=== PATIENT | male | born 1955 | race Caucasian/White ===

== ENCOUNTER 2023-01-21 03:27 | Emergency (ER) | payer MEDICARE, MEDICAID ==
[~2023-01-21] VITALS: Ht 172.7 cm; Wt 100.0 kg
[2023-01-21 03:28] VITALS: BP 138/98; PULSE 76; RESP 18; TEMP 99.1; O2SAT 100
[2023-01-21] MEDS ORDERED: MORPHINE SULFATE 4 MG/ML CPJ (NOT FOR IM USE) IV ONE (04:30)
[2023-01-21 04:31] LABS: BASOPHILS % 0.6 % (0.0-2.0); EOSINOPHILS % 1.8 % (0.0-5.0); HEMATOCRIT. 44.1 % (42.0-52.0); HEMOGLOBIN. 15.3 g/dL (14.0-18.0); LYMPHOCYTES % 26.9 % (20.0-50.0); MEAN CORPUSCULAR HEMOGLOBIN 31.1 pg (28.0-32.0); MEAN CORPUSCULAR VOLUME 89.9 fL (80.0-94.0); MONOCYTES % 9.9 % (2.0-8.0); NEUTROPHILS % 60.8 % (40.0-76.0); PLATELET 306 x1000/uL (130-400); RED CELL DISTRIBUTION WIDTH 15.5 % (11.6-14.6)
[2023-01-21 04:41] LABS: CHLORIDE 106 mEq/L (98-107)
[2023-01-21] MEDS ORDERED: IOHEXOL-350 100 ML BOTTLE ONE (06:29)
== END 2023-01-21 06:30 | disposition left against medical advice (07) ==
LOC: ER 03:52 → EDBEDREQ 05:04 → EDBEDREQTM 05:04 → ER 06:30 → ENRESERV 06:42 → CANRESERV 06:42 → CANBEDREQ 21:31
DX: R07.89 Other chest pain (principal); I10 Essential (primary) hypertension; Z68.33 Body mass index [BMI] 33.0-33.9, adult
CPT/HCPCS: 99285; 96374; 71275; 71045; 80053; 83880; 85025; 84484; 36415; Q9967; J2270

== ENCOUNTER 2023-01-31 15:14 | Emergency (ER) | payer MEDICARE, MEDICAID ==
[~2023-01-31] VITALS: Ht 185.4 cm; Wt 90.0 kg
[2023-01-31 15:16] VITALS: TEMP 98.3; O2SAT 100
[2023-01-31 16:13] LABS: BASOPHILS % 0.4 % (0.0-2.0); EOSINOPHILS % 1.9 % (0.0-5.0); HEMATOCRIT. 43.5 % (42.0-52.0); MEAN CORPUSCULAR HEMOGLOBIN 30.9 pg (28.0-32.0); MEAN CORPUSCULAR VOLUME 89.8 fL (80.0-94.0); MEAN PLATELET VOLUME 7.3 fl (7.4-10.4); MONOCYTES % 7.8 % (2.0-8.0); NEUTROPHILS % 64.9 % (40.0-76.0); PLATELET 297 x1000/uL (130-400); RED BLOOD CELL COUNT 4.84 mill/uL (4.7-6.1); RED CELL DISTRIBUTION WIDTH 14.6 % (11.6-14.6)
[2023-01-31 16:18] LABS: CHLORIDE 107 mEq/L (98-107)
[2023-01-31 18:00] VITALS: BP 144/99; PULSE 96; RESP 18
== END 2023-01-31 19:00 | disposition home or self-care (01) ==
LOC: ER 15:14
DX: R07.89 Other chest pain (principal); I10 Essential (primary) hypertension
CPT/HCPCS: 36415; 71045; 80053; 80320; 83880; 84484; 85025; 93005; 99285; G0480

== ENCOUNTER 2023-03-31 00:14 | Emergency (ER) | payer MEDICARE, MEDICAID ==
[~2023-03-31] VITALS: Ht 193 cm; Wt 90.0 kg
[2023-03-31 00:16] VITALS: BP 144/82; PULSE 84; RESP 16; TEMP 98.4; O2SAT 98
[2023-03-31 01:32] LABS: CLARITY URINE CLEAR (CLEAR); COLOR URINE YELLOW (YELLOW); GLUCOSE URINE NEGATIVE (NEGATIVE); KETONES URINE NEGATIVE (NEGATIVE); LEUKOCYTE ESTERASE URINE 3+ (NEGATIVE); NITRITE URINE NEGATIVE (NEGATIVE); OCCULT BLOOD URINE 2+ (NEGATIVE); PROTEIN URINE TRACE (NEGATIVE); SPECIFIC GRAVITY URINE 1.011 (1.005-1.030); UROBILINOGEN URINE 0.2 E.U./dL (0.2-1.0)
[2023-03-31] MEDS ORDERED: CEPH500T MT (01:34)
[2023-03-31] MEDS ORDERED: TAMS-11 MT (01:34)
[2023-03-31 01:36] LABS: SQUAMOUS EPITHELIAL CELL URINE NONE SEEN /lpf (RARE/1+)
[2023-03-31 02:26] LABS: WBC URINE 15-25 /hpf (0-2)
[2023-03-31 02:29] LABS: BACTERIA URINE TRACE; YEAST URINE 1+
== END 2023-03-31 02:33 | disposition home or self-care (01) ==
LOC: ER 00:28
DX: N39.0 Urinary tract infection, site not specified (principal); R33.9 Retention of urine, unspecified; F32.9 Major depressive disorder, single episode, unspecified; I10 Essential (primary) hypertension
CPT/HCPCS: 81003; 87077; 87186; 99283

== ENCOUNTER 2023-05-19 07:50 | Emergency (ER) | payer MEDICARE, MEDICAID ==
[~2023-05-19] VITALS: Ht 180.3 cm; Wt 79.0 kg
[~2023-05-19 07:50] MED LIST: CEPH500T MT; TAMS-11 MT
[2023-05-19 08:04] VITALS: BP 146/80; PULSE 90; RESP 18; TEMP 98.5; O2SAT 98
[2023-05-19 09:26] LABS: BASOPHILS % 1.1 % (0.0-2.0); EOSINOPHILS % 0.8 % (0.0-5.0); HEMATOCRIT. 42.9 % (42.0-52.0); HEMOGLOBIN. 14.2 g/dL (14.0-18.0); LYMPHOCYTES % 19.3 % (20.0-50.0); MEAN CORPUSCULAR HGB CONC 33.1 g/dL (31.0-37.0); MEAN CORPUSCULAR VOLUME 90.5 fL (80.0-94.0); MEAN PLATELET VOLUME 7.3 fl (7.4-10.4); MONOCYTES % 6.3 % (2.0-8.0); NEUTROPHILS % 72.5 % (40.0-76.0); PLATELET 197 x1000/uL (130-400); RED BLOOD CELL COUNT 4.74 mill/uL (4.7-6.1); RED CELL DISTRIBUTION WIDTH 16.3 % (11.6-14.6); WHITE BLOOD COUNT 7.7 x1000/uL (4.5-11.0)
[2023-05-19 09:51] LABS: CHLORIDE 111 mEq/L (98-107); INDEX HEMOLYSI 1 (1-3); INDEX ICTERIC 1 (1-4); INDEX LIPEMIC 1 (1-3); POTASSIUM 3.6 mEq/L (3.5-5.1); SODIUM 144 mEq/L (136-145)
[2023-05-19 09:59] LABS: ALANINE AMINOTRANSFERASE 24 IU/L (13-61); ALBUMIN 3.1 g/dL (3.4-5.0); ASPARTATE AMINOTRANSFERASE 20 IU/L (15-37); BILIRUBIN TOTAL 0.3 mg/dL (0.1-1.0); CALCIUM 8.3 mg/dL (8.5-10.1); CARBON DIOXIDE 25 mEq/L (21-32); CREATININE 0.8 mg/dL (0.6-1.3); ETHANOL BLOOD 261 mg/dL (<10); GLUCOSE 94 mg/dL (70-105); PROTEIN TOTAL 6.6 g/dL (6.0-8.3); UREA NITROGEN BLOOD 10 mg/dL (7-21)
== END 2023-05-19 13:59 | disposition home or self-care (01) ==
LOC: ER 07:53
DX: F10.129 Alcohol abuse with intoxication, unspecified (principal); I10 Essential (primary) hypertension; F20.9 Schizophrenia, unspecified; R41.82 Altered mental status, unspecified; Y90.8 Blood alcohol level of 240 mg/100 ml or more
CPT/HCPCS: 36415; 80053; 80320; 85025; 99284; G0480

== ENCOUNTER 2024-06-04 02:37 | Emergency (ER) | payer MEDICARE, MEDICAID ==
[~2024-06-04] VITALS: Ht 182.9 cm; Wt 84.0 kg
[2024-06-04 02:38] VITALS: O2SAT 98
[2024-06-04] MEDS: LORAZEPAM 2MG/ML INJ IM ONE (03:00)
[2024-06-04 03:39] LABS: BASOPHILS % 0.5 % (0.0-2.0); EOSINOPHILS % 1.1 % (0.0-5.0); HEMATOCRIT. 56.1 % (42.0-52.0); HEMOGLOBIN. 18.4 g/dL (14.0-18.0); LYMPHOCYTES % 24.6 % (20.0-50.0); MEAN CORPUSCULAR HEMOGLOBIN 30.3 pg (28.0-32.0); MEAN CORPUSCULAR HGB CONC 32.9 g/dL (31.0-37.0); MEAN CORPUSCULAR VOLUME 92.1 fL (80.0-94.0); MONOCYTES % 7.8 % (2.0-8.0); RED BLOOD CELL COUNT 6.09 mill/uL (4.7-6.1); RED CELL DISTRIBUTION WIDTH 15.2 % (11.6-14.6)
[2024-06-04 03:46] LABS: CHLORIDE 104 mEq/L (98-107); SODIUM 142 mEq/L (136-145)
[2024-06-04 03:47] LABS: CARBON DIOXIDE 23 mEq/L (21-32)
[2024-06-04 03:48] LABS: CALCIUM 11.6 mg/dL (8.7-10.4)
[2024-06-04 03:52] LABS: CREATININE 1.4 mg/dL (0.6-1.3); GLUCOSE 132 mg/dL (70-105)
[2024-06-04 03:53] LABS: TROPONIN I HIGH SENSITIVITY 34 ng/L (3.0-53); UREA NITROGEN BLOOD 14 mg/dL (9-23)
[2024-06-04 03:56] LABS: DIFFERENTIAL COMMENT 1
[2024-06-04 04:27] VITALS: BP 145/89; PULSE 89; RESP 18; TEMP 36.83628; O2SAT 98
[2024-06-04 06:46] LABS: MEAN PLATELET VOLUME 7.9 fl (7.4-10.4); PLATELET 356 x1000/uL (130-400)
== END 2024-06-04 05:01 | disposition home or self-care (01) ==
LOC: ER 02:37
DX: F15.129 Other stimulant abuse with intoxication, unspecified (principal); F41.9 Anxiety disorder, unspecified; I10 Essential (primary) hypertension; F32.A Depression, unspecified
CPT/HCPCS: 99284; 71045; 80048; 85025; 84484; 36415; 96372; J2060

== ENCOUNTER 2024-06-07 13:08 | Emergency (ER) | payer MEDICARE, MEDICAID ==
[~2024-06-07] VITALS: Ht 190.5 cm; Wt 100.0 kg
[2024-06-07 13:11] VITALS: O2SAT 99
[2024-06-07] MEDS: KETOROLAC 30MG/ML VIAL IV STA (13:44)
[2024-06-07] MEDS: LORAZEPAM 2MG/ML INJ IV ONE (13:44)
[2024-06-07 13:57] LABS: CHLORIDE 107 mEq/L (98-107); POTASSIUM 4.1 mEq/L (3.5-5.1); SODIUM 138 mEq/L (136-145)
[2024-06-07 13:58] LABS: CALCIUM 9.3 mg/dL (8.7-10.4); CARBON DIOXIDE 21 mEq/L (21-32)
[2024-06-07 14:01] LABS: BASOPHILS % 0.7 % (0.0-2.0); EOSINOPHILS % 1.5 % (0.0-5.0); HEMATOCRIT. 45.8 % (42.0-52.0); HEMOGLOBIN. 15.4 g/dL (14.0-18.0); LYMPHOCYTES % 23.3 % (20.0-50.0); MEAN CORPUSCULAR HEMOGLOBIN 30.9 pg (28.0-32.0); MEAN CORPUSCULAR HGB CONC 33.8 g/dL (31.0-37.0); MEAN CORPUSCULAR VOLUME 91.5 fL (80.0-94.0); MEAN PLATELET VOLUME 7.8 fl (7.4-10.4); MONOCYTES % 7.3 % (2.0-8.0); NEUTROPHILS % 67.2 % (40.0-76.0); PLATELET 260 x1000/uL (130-400); RED CELL DISTRIBUTION WIDTH 15.3 % (11.6-14.6); WHITE BLOOD COUNT 9.1 x1000/uL (4.5-11.0)
[2024-06-07 14:03] LABS: GLUCOSE 80 mg/dL (70-105); UREA NITROGEN BLOOD 15 mg/dL (9-23)
[2024-06-07 14:05] LABS: ALANINE AMINOTRANSFERASE 14 IU/L (10-49); ALBUMIN 4.4 g/dL (3.2-4.8); ASPARTATE AMINOTRANSFERASE 24 IU/L (<34); BILIRUBIN DIRECT 0.2 mg/dL (<=3.0); BILIRUBIN TOTAL 0.6 mg/dL (0.1-1.0); INR 0.9; PROTEIN TOTAL 7.2 g/dL (6.0-8.3); PROTHROMBIN TIME 9.9 sec (9.6-11.0)
[2024-06-07 14:13] LABS: ETHANOL BLOOD < 10 mg/dL (<10)
[2024-06-07] MEDS ORDERED: IBUP-2029 MT (16:10)
[2024-06-07] MEDS ORDERED: TAMS-11 MT (16:10)
[2024-06-07 16:39] VITALS: BP 132/65; PULSE 94; RESP 22; TEMP 36.89184; O2SAT 99
== END 2024-06-07 16:40 | disposition home or self-care (01) ==
LOC: ER 13:08
DX: N20.0 Calculus of kidney (principal); F15.10 Other stimulant abuse, uncomplicated; F41.9 Anxiety disorder, unspecified; I10 Essential (primary) hypertension; F32.A Depression, unspecified
CPT/HCPCS: 80076; 80048; 80320; 83690; 85025; 85610; 36415; 74176; 96374; 96375; 99285; J1885; J2060; G0480

== ENCOUNTER 2024-10-17 18:44 | Emergency (ER) | payer MEDICARE, MEDICAID ==
[~2024-10-17] VITALS: Ht 177.8 cm; Wt 95.0 kg
[~2024-10-17 18:44] MED LIST changes: +IBUP-2029 MT
[2024-10-17 18:51] VITALS: O2SAT 97
[2024-10-17 20:08] LABS: BASOPHILS % 0.6 % (0.0-2.0); HEMATOCRIT. 45.4 % (42.0-52.0); HEMOGLOBIN. 14.9 g/dL (14.0-18.0); LYMPHOCYTES % 26.7 % (20.0-50.0); MEAN CORPUSCULAR HGB CONC 32.7 g/dL (31.0-37.0); MEAN CORPUSCULAR VOLUME 94.6 fL (80.0-94.0); MEAN PLATELET VOLUME 7.6 fl (7.4-10.4); MONOCYTES % 9.8 % (2.0-8.0); NEUTROPHILS % 59.9 % (40.0-76.0); PLATELET 275 x1000/uL (130-400); RED CELL DISTRIBUTION WIDTH 15.2 % (11.6-14.6); WHITE BLOOD COUNT 6.9 x1000/uL (4.5-11.0)
[2024-10-17 20:18] LABS: CHLORIDE 108 mEq/L (98-107); POTASSIUM 3.9 mEq/L (3.5-5.1); SODIUM 143 mEq/L (136-145)
[2024-10-17 20:19] LABS: CALCIUM 9.2 mg/dL (8.7-10.4); CARBON DIOXIDE 25 mEq/L (21-32)
[2024-10-17 20:24] LABS: GLUCOSE 92 mg/dL (70-105); UREA NITROGEN BLOOD 15 mg/dL (9-23)
[2024-10-18] MEDS: TRAMADOL 50MG TABLET PO ONE (02:46)
[2024-10-18] MEDS: IBUPROFEN 600MG TABLET PO ONE (02:46)
[2024-10-18 03:42] LABS: CLARITY URINE CLEAR (CLEAR); COLOR URINE YELLOW (YELLOW); GLUCOSE URINE NEGATIVE (NEGATIVE); KETONES URINE NEGATIVE (NEGATIVE); LEUKOCYTE ESTERASE URINE NEGATIVE (NEGATIVE); NITRITE URINE NEGATIVE (NEGATIVE); OCCULT BLOOD URINE 2+ (NEGATIVE); PROTEIN URINE TRACE (NEGATIVE); SPECIFIC GRAVITY URINE 1.018 (1.005-1.030); UROBILINOGEN URINE 0.2 E.U./dL (0.2-1.0)
[2024-10-18 05:20] LABS: RBC URINE 0-2 /hpf (0-2)
[2024-10-18 05:21] LABS: BACTERIA URINE NONE SEEN; SQUAMOUS EPITHELIAL CELL URINE NONE SEEN /lpf (RARE/1+)
[2024-10-18 05:36] VITALS: BP 149/100; PULSE 99; RESP 17; TEMP 36.6; O2SAT 97
== END 2024-10-18 06:04 | disposition home or self-care (01) ==
LOC: ER 18:44
DX: R14.0 Abdominal distension (gaseous) (principal); F17.200 Nicotine dependence, unspecified, uncomplicated; I10 Essential (primary) hypertension; J44.9 Chronic obstructive pulmonary disease, unspecified; N40.0 Benign prostatic hyperplasia without lower urinary tract symptoms; F15.90 Other stimulant use, unspecified, uncomplicated; F10.10 Alcohol abuse, uncomplicated; Y90.9 Presence of alcohol in blood, level not specified
CPT/HCPCS: 36415; 71045; 74176; 76700; 80048; 81003; 85025; 99285